=== PATIENT | female | born 1985 | race Caucasian/White ===

== ENCOUNTER 2019-06-12 05:35 | Inpatient (IN) | payer MEDICAID, OTHER ==
[~2019-06-12] VITALS: Ht 162.6 cm; Wt 52.2 kg
[~2019-06-12 05:35] MED LIST: ACET-2619 PO; ALUM360S96 PO; BEN10 PO; CARB200T1 PO; IMO2 PO; MAGN400S60 PO; METH750T5 PO; MULT-298 PO; PANT40EC PO; PROM25TA85 IM; QUET100T PO; QUET300T1 PO; SUCR1TAB56 PO
[2019-06-12 05:38] VITALS: BP 160/90
--- NOTE | 2019-06-12 05:39 | NUR ---
PT TAKEN TO BED 7
--- NOTE | 2019-06-12 05:55 | NUR ---
34 Y/O FEMALE BIB SIGNIFICANT OTHER WITH REFFERAL FROM DR. JEFFREY LANDRY MD FOR G-TUBE MALFUNCTION. PER PT G-TUBE FELL OUT X 2 DAYS AGO AND STOMA IS RED, WITH EDEMA PRESENT. WHITE DRAINAGE IS NOTED COMING OUT OF STOMA. PT STATES SHE HAS 7/10 PAIN IN THE AREA, PALPATION PROVOKES PAIN. PT UNABLE TO EAT WELL. "I'VE BEEN EATING MOSTLY FLUIDS AND EVEN THAT BOTHERS ME." PT SITTING UP IN BED RESTING WITH SIGNIFICANT OTHER AT BEDSIDE. VSS. WILL CONTINUE TO MONITOR. MEDICAL HISTORY: GASTRIC BYPASS SURGERY 2010. REMOVAL OF GALBLADDER AND L OVARY. ALLERGIES: SEE PT CHART.
[2019-06-12] MEDS ORDERED: NACL 0.9% 1,000 ML IV ONE (06:00)
--- NOTE | 2019-06-12 06:05 | NUR ---
DR HERRERA AT BEDSIDE.
[2019-06-12 06:35] LABS: BASOPHILS % (AUTO) 0.5 % (0.0-2.0); EOSINOPHILS # (AUTO) 0.1 K/uL (0-0.4); EOSINOPHILS % (AUTO) 1.4 % (0.0-4.0); HEMATOCRIT 29.2 % (36-48); HEMOGLOBIN 8.7 g/dL (12.0-16.0); LYMPHOCYTES % (AUTO) 21.7 % (20.5-51.1); MEAN CORPUSCULAR HEMOGLOBIN 18 pg (27-31); MEAN CORPUSCULAR HGB CONC 30 g/dL (33-37); MEAN CORPUSCULAR VOLUME 62.1 fL (80-94); MONOCYTES # (AUTO) 0.3 K/uL (0.8-1.0); MONOCYTES % (AUTO) 7.4 % (1.7-9.3); NEUTROPHILS # (AUTO) 3.1 K/uL (1.8-7.7); PLATELET COUNT (AUTO) 260 K/uL (140-450); RED BLOOD CELL COUNT(AUTO) 4.71 MIL/uL (4.20-5.40); WHITE BLOOD COUNT (AUTO) 4.6 K/uL (4.8-10.8)
[2019-06-12 06:38] LABS: ANION GAP 8.2 (8-16); CARBON DIOXIDE 30.4 mmol/L (21-32); CREATININE 0.8 mg/dL (0.6-1.3); POTASSIUM 3.6 mmol/L (3.5-5.1)
[2019-06-12] MEDS ORDERED: LACTATED RINGERS 1,000 ML IV SCH (06:39)
[2019-06-12 06:40] LABS: PROTHROMBIN TIME 9.9 secs (10.8-13.4)
[2019-06-12] MEDS ORDERED: ONDANSETRON 4 MG/2 ML VIAL IVP PRN (06:40)
[2019-06-12] MEDS ORDERED: LORazepam 2 MG/ML VIAL IVP PRN (06:40)
[2019-06-12 06:44] LABS: ALBUMIN 3.2 g/dL (3.4-5.0); TOTAL BILIRUBIN 0.4 mg/dL (0.0-1.0)
[2019-06-12] MEDS ORDERED: CLON1TAB PO (07:17)
[2019-06-12] MEDS ORDERED: HYDR2TAB6 PO (07:17)
--- NOTE | 2019-06-12 07:34 | NUR ---
PT ARRIVED ON THE UNIT. PT APPEARS STABLE AND IN NO APPARENT DISTRESS. PERFORMED HEAD TO TOE ASSESSMENT. ORIENTED PT TO UNIT OBTAINED MRSA NARES. TOOK WOUND PHOTO JTUBE OUT. OBTAINED VITALS.
[2019-06-12] MEDS ORDERED: fentaNYL 0.05 MG/ML VIAL ONE (07:44)
[2019-06-12] MEDS ORDERED: MIDAZOLAM 2 MG/2 ML VIAL ONE (07:44)
--- NOTE | 2019-06-12 07:58 | NUR ---
PT TAKEN OFF THE UNIT BY OR RNS PT APPEARS STABLE AND IN NO APPARENT DISTRESS. CONSENT SIGNED AND IN THE CHART.
--- NOTE | 2019-06-12 08:36 | NUR ---
DC PLANNING 34 YRS OLD FEMALE PATIENT WAS ADMITTED FROM HOME WITH A DX OF J-TUBE MALFUNCTION. PT HAS A HX OF GASTRIC BY PASS AND SEVERAL ABDOMINAL SURGERIES. DC PLAN TO REPLACE J-TUBE BY DR LANDRY AND DC HOME WHEN STABLE. CM TO FOLLOW
[2019-06-12] MEDS: diphenhydrAMINE 50 MG/ML VIAL ONE ×2 (08:42→09:16)
[2019-06-12] MEDS ORDERED: ceFAZolin 1,000 MG VIAL ONE (08:42)
[2019-06-12] MEDS ORDERED: fentaNYL 0.05 MG/ML VIAL IVP ONE (08:55)
[2019-06-12] MEDS ORDERED: MIDAZOLAM 2 MG/2 ML VIAL IVP ONE (08:55)
--- NOTE | 2019-06-12 09:30 | NUR ---
PT ARRIVED BACK ON THE UNIT FROM OR PT AWAKE IN BED PT APPEARS STABLE AND IN NO APPARENT DISTRESS. ALL SAFETY MEASURES ARE IN PLACE WILL CONTINUE TO MONITOR.
[2019-06-12 09:51] VITALS: BP 140/90
--- NOTE | 2019-06-12 11:02 | NUR ---
THE FOLLOWING APPOINTMENT HAS BEEN SET UP FOR YOU FOLLOW-UP CARE: 06/22/2018 AT 10:10AM DR. SENAIT DUVALL [address] [facility]. [address] [id number] IF YOU ARE UNABLE TO KEEP THIS APPOINTMENT PLEASE CONTACT THE CLINIC DIRECTLY TO RESCHEDULE.
--- NOTE | 2019-06-12 11:38 | NUR ---
FREQUENT ROUNDING ON PT PT FAMILY AT BEDSIDE. ALL SAFETY MEASURES ARE IN PLACE WILL CONTINUE TO MONITOR. ALL SAFETY MEASURES ARE IN PLACE WILL CONTINUE TO MONITOR
[2019-06-12 12:05] VITALS: BP 138/81
--- NOTE | 2019-06-12 13:12 | NUR ---
FREQUENT ROUNDING ON PT PT APPEARS STABLE AND IN NO APPARENT DISTRESS. ALL SAFETY MEASURES ARE IN PLACE WILL CONTINUE TO MONITOR
--- NOTE | 2019-06-12 13:49 | NUR ---
PATIENT HAS BEEN SCREENED AND CATEGORIZED HIGH NUTRITION RISK. PATIENT WILL BE SEEN WITHIN 1-2 DAYS OF ADMISSION. 06/12/19-06/13/[address]
[2019-06-12] MEDS ORDERED: clonazePAM 0.5 MG TAB PO SCH (14:55)
--- NOTE | 2019-06-12 15:30 | NUR ---
FREQUENT ROUNDING ON PT PT APPEARS STABLE AND IN NO APPARENT DISTRESS. ALL SAFETY MEASURES ARE IN PLACE
--- NOTE | 2019-06-12 16:15 | NUR ---
REVIEWED DISCHARGE INSTRUCTIONS WITH PATIENT. INFORMED PT TO FOLLOW UP WITH HER PRIMARY CARE PROVIDER WITHIN THE NEXT 2 WEEKS. PROVIDED EDUCATION OF DIET AND EXERCISE.ANSWERED ALL PATIENTS QUESTIONS. REMOVED ID BAND. REMOVED IV IV TIP INTACT. ALL SAFETY MEASURES ARE IN PLACE PT AMBULATED OFF THE UNIT WITH ALL PERSONAL BELONGINGS.
== END 2019-06-12 16:15 | disposition home or self-care (01) | DRG 252 ==
LOC: MED 05:35 → MTU 06:44
PROVIDERS: ADMIT Internal Medicine Pulmonary Disease; ATTEND Internal Medicine Pulmonary Disease
PROC: 0DW Gastrointestinal System, Revision (ICD-10-PCS; principal; 2019-06-12 08:00)
DX: K94.23 Gastrostomy malfunction (principal); E43 Unspecified severe protein-calorie malnutrition; Y83.8 Other surgical procedures as the cause of abnormal reaction of the patient, or of later complication, without mention of misadventure at the time of the procedure; Y82.8 Other medical devices associated with adverse incidents; F11.20 Opioid dependence, uncomplicated; F17.200 Nicotine dependence, unspecified, uncomplicated; G89.4 Chronic pain syndrome; K21.9 Gastro-esophageal reflux disease without esophagitis; Z98.84 Bariatric surgery status; Z68.1 Body mass index [BMI] 19.9 or less, adult; Z88.6 Allergy status to analgesic agent; Z88.1 Allergy status to other antibiotic agents; Z88.5 Allergy status to narcotic agent; Z88.8 Allergy status to other drugs, medicaments and biological substances
CPT/HCPCS: 36415; 80053; 85025; 85610; 85730; 87081; 99285; J0690; J1200; J2250; J3010; J7030; J7060

== ENCOUNTER 2020-08-09 11:00 | Observation (INO) | payer OTHER, SELFPAY ==
[~2020-08-09] VITALS: Ht 157.5 cm; Wt 54.0 kg
[~2020-08-09 11:00] MED LIST changes: -ALUM360S96 PO; -BEN10 PO; -CARB200T1 PO; +CLON1TAB PO; +HYDR2TAB6 PO; -IMO2 PO; -MAGN400S60 PO; -METH750T5 PO; -PANT40EC PO; -PROM25TA85 IM; -QUET100T PO; -QUET300T1 PO; -SUCR1TAB56 PO
--- NOTE | 2020-08-09 11:10 | NUR ---
PT TAKEN TO ER BED 12.
[2020-08-09 11:12] VITALS: BP 112/64
--- NOTE | 2020-08-09 11:14 | NUR ---
RN AT BEDSIDE FOR EVALUATION, TEMP 101.5 ORAL, PRN ACETAMINOPHEN 1MG PO ORDERED AT THIS TIME PER MD ORDER.
[2020-08-09] MEDS ORDERED: ACETAMINOPHEN EXTRA STRENGTH 500 MG TAB PO ONE (11:15)
--- NOTE | 2020-08-09 11:15 | NUR ---
35 y/o female bib self for J-tube dislodgement x 3 days. pt called GI doctor x3 days ago with no response and today he told her to come to ER. pt states pain is 6/10 and describes it as achy. pt states it is continuous as she has chronic abd pain. pt denies taking anything for the pain. on assessment abd is soft, flat, and nontender with active bowel sounds in all 4 quardrants. J tube opening is red with no discharge. pt denies n/v/SOB/chills/cough. pt is A&O x4 with even and unlabored respirations. pt is laying in bed, bed in lowest position, brakes locked, x1 siderail up. pmhx: Gastric bypass in 2009, 35 abdominal surgeries, L ovary removal, appendectomy, cholecystectomy. allx: NSAIDs, IV dye, Compazine, morphine, vancomycin, ASA, famotidine
--- NOTE | 2020-08-09 11:57 | NUR ---
DR DAVIS AT BEDSIDE FOR EVALUATION
[2020-08-09] MEDS ORDERED: NACL 0.9% 2,000 ML IV ONE (12:10)
--- NOTE | 2020-08-09 12:23 | NUR ---
PT AMBULATED TO RESTROOM FOR URINE SAMPLE WITH STEADY GAIT
--- NOTE | 2020-08-09 12:27 | NUR ---
PT UNABLE TO PROVIDE URINE SAMPLE AT THIS TIME. PROVIDED CUP OF WATER.
--- NOTE | 2020-08-09 12:34 | NUR ---
RAD AT BEDSIDE
--- NOTE | 2020-08-09 13:10 | NUR ---
URINE SAMPLE COLLECTED AND WALKED TO LAB
[2020-08-09 13:15] LABS: BILIRUBIN,URINE NEGATIVE (NEGATIVE); BLOOD, URINE NEGATIVE (NEGATIVE); LEUKOCYTE ESTERASE ,URINE NEGATIVE (NEGATIVE); NITRITE, URINE NEGATIVE (NEGATIVE); UGLUCOSE TRACE (NEGATIVE)
[2020-08-09 13:17] LABS: PROTHROMBIN TIME 10.1 secs (10.8-13.4)
[2020-08-09 13:19] LABS: APPEARANCE,URINE SLIGHTLY HAZY (CLEAR); COLOR,URINE ORANGE (YELLOW)
[2020-08-09 13:20] LABS: RBC,URINE 0-5 /HPF (0-5); WBC,URINE 0-5 /HPF (0-5)
[2020-08-09 13:25] LABS: ALBUMIN 3.1 g/dL (3.4-5.0); ANION GAP 10.2 (8-16); CARBON DIOXIDE 31.8 mmol/L (21-32); CREATININE 0.8 mg/dL (0.6-1.3); TOTAL BILIRUBIN 0.5 mg/dL (0.0-1.0)
[2020-08-09 13:28] LABS: BASOPHILS # (AUTO) 0.1 K/uL (0.00-0.22); BASOPHILS % (AUTO) 0.5 % (0.0-2.0); EOSINOPHILS # (AUTO) 0.1 K/uL (0-0.4); EOSINOPHILS % (AUTO) 0.5 % (0.0-4.0); HEMATOCRIT 25.5 % (36-48); HEMOGLOBIN 7.4 g/dL (12.0-16.0); LYMPHOCYTES # (AUTO) 1.6 K/uL (2.5-16.5); LYMPHOCYTES % (AUTO) 13.6 % (20.5-51.1); MEAN CORPUSCULAR HEMOGLOBIN 16 pg (27-31); MEAN CORPUSCULAR HGB CONC 29 g/dL (33-37); MEAN CORPUSCULAR VOLUME 56.1 fL (80-94); MONOCYTES # (AUTO) 0.9 K/uL (0.8-1.0); MONOCYTES % (AUTO) 8.2 % (1.7-9.3); NEUTROPHILS # (AUTO) 8.9 K/uL (1.8-7.7); NEUTROPHILS % (AUTO) 77.2 % (42.2-75.2); PLATELET COUNT (AUTO) 388 K/uL (140-450); RED BLOOD CELL COUNT(AUTO) 4.55 MIL/uL (4.20-5.40); RED CELL DISTRIBUTION WIDTH 18.2 % (11.6-13.7); WHITE BLOOD COUNT (AUTO) 11.6 K/uL (4.8-10.8)
--- NOTE | 2020-08-09 14:05 | NUR ---
PT RESTING IN BED WITH EVEN AND UNLABORED RESPIRATIONS OBSERVED. VSS. WILL CONTINUE TO MONITOR
[2020-08-09] MEDS ORDERED: ACETAMINOPHEN 325 MG TAB PO PRN (14:20)
[2020-08-09] MEDS ORDERED: clonazePAM 0.5 MG TAB PO PRN (14:25)
[2020-08-09] MEDS: DEXT 5% / NACL 0.45% 1,000 ML IV SCH (14:43)
--- NOTE | 2020-08-09 14:51 | NUR ---
REPORT GIVEN TO LAURA FRANKLIN FOR ADMIT TO [facility] 125A. ETA 15 MINS
[2020-08-09 15:05] VITALS: BP 127/86
--- NOTE | 2020-08-09 15:05 | NUR ---
RECEIVED PATIENT FROM THE ER NURSE. PATIENT IS AO X4. RESPIRATIONS EVEN AND UNLABORED. NO RESPIRATORY DISTRESS NOTED. ON ROOM AIR. SKIN IS WARM AND DRY. IV SITE RAC 16G INFUSING D5 1/2 NS @75 CC/HR. HAS A J-TUBE STOMA ON RIGHT UPPER ABD. ABDOMEN IS FLAT, SOFT, AND NON-DISTENDED. COMPLAINS OF ABD PAIN 8/10. PLAN OF CARE DISCUSSED. SAFETY PRECAUTIONS IN PLACE. CALL LIGHT WITHIN REACH. WILL CONTINUE TO MONITOR.
--- NOTE | 2020-08-09 15:10 | NUR ---
Patient will be admitted to care of Dr. Blair Duggan. Admited to [facility]. Will go to room 125A. Belongings list completed. Report to Dionte FRANKLIN.
[2020-08-09] MEDS: HYDROmorphone 1 MG/ML AMP IVP PRN ×2 (15:22→21:47)
--- NOTE | 2020-08-09 15:22 | NUR ---
PATIENT COMPLAINED OF ABD PAIN 8. ADMINISTERED DILAUDID IVP PER MD ORDERED.
--- NOTE | 2020-08-09 18:00 | NUR ---
CHECKED ON PATIENT. PATIENT IS STABLE. NO DISTRESS NOTED. WILL CONTINUE TO MONITOR.
[2020-08-09 20:00] VITALS: BP 162/99
--- NOTE | 2020-08-09 21:54 | NUR ---
IV noted infiltrated with bulge to inner upper arm near site. Sore to touch. Infusion stopped.
--- NOTE | 2020-08-09 23:30 | NUR ---
22 GA LFA IV fluids resumed, D51/2 NS@75/hr.
[2020-08-10] VITALS: BP 135/72
[2020-08-10] MEDS: DEXT 5% / NACL 0.45% 1,000 ML IV SCH ×3 (03:40→17:22)
[2020-08-10 04:00] VITALS: BP 146/95
--- NOTE | 2020-08-10 07:30 | NUR ---
RECEIVED BEDSIDE REPORT FROM PAYROLL SUPERVISOR NURSE. PATIENT IS AO X4. ABLE TO MAKE NEEDS KNOWN. RESPIRATIONS EVEN AND UNLABORED. NO RESPIRATORY DISTRESS NOTED. ON ROOM AIR. SKIN IS WARM AND DRY. IV SITE ON LEFT WRIST 20G INFUSING D5 1/2 NS @75 CC/HR. HAS A J-TUBE STOMA ON RIGHT UPPER ABD. ABDOMEN IS FLAT, SOFT, AND NON-DISTENDED. NO COMPLAIN OF PAIN IN THE ABD. PLAN OF CARE DISCUSSED. SAFETY PRECAUTIONS IN PLACE. CALL LIGHT WITHIN REACH. WILL CONTINUE TO MONITOR.
--- NOTE | 2020-08-10 07:30 | NUR ---
Hand-off report to RIGOBERTO Rapp for continuity of care.
[2020-08-10 08:02] LABS: CARBON DIOXIDE 28.6 mmol/L (21-32); CREATININE 0.6 mg/dL (0.6-1.3); POTASSIUM 3.6 mmol/L (3.5-5.1)
[2020-08-10 08:09] LABS: BASOPHILS % (AUTO) 0.5 % (0.0-2.0); EOSINOPHILS # (AUTO) 0.1 K/uL (0-0.4); EOSINOPHILS % (AUTO) 1.2 % (0.0-4.0); HEMATOCRIT 23.1 % (36-48); LYMPHOCYTES # (AUTO) 1.4 K/uL (2.5-16.5); LYMPHOCYTES % (AUTO) 22.7 % (20.5-51.1); MEAN CORPUSCULAR HEMOGLOBIN 17 pg (27-31); MEAN CORPUSCULAR HGB CONC 29 g/dL (33-37); MONOCYTES # (AUTO) 0.4 K/uL (0.8-1.0); NEUTROPHILS # (AUTO) 4.2 K/uL (1.8-7.7); NEUTROPHILS % (AUTO) 68.6 % (42.2-75.2); PLATELET COUNT (AUTO) 328 K/uL (140-450); RED BLOOD CELL COUNT(AUTO) 4.05 MIL/uL (4.20-5.40); RED CELL DISTRIBUTION WIDTH 17.9 % (11.6-13.7); WHITE BLOOD COUNT (AUTO) 6.1 K/uL (4.8-10.8)
[2020-08-10] MEDS: HYDROmorphone 1 MG/ML AMP IVP PRN (09:24)
--- NOTE | 2020-08-10 09:24 | NUR ---
NO SCHEDULED MEDS TO ADMINISTER. PT COMPLAINED OF ABD PAIN 01/27. ADMINISTERED DILAUDID IVP PER MD ORDERED.
[2020-08-10 09:53] LABS: HEMOGLOBIN 6.7 g/dL (12.0-16.0)
[2020-08-10 10:33] LABS: HEMATOCRIT 22.9 % (36-48)
--- NOTE | 2020-08-10 10:41 | NUR ---
PATIENT HAS BEEN SCREENED AND CATEGORIZED HIGH NUTRITION RISK. PATIENT WILL BE SEEN WITHIN 1-2 DAYS OF ADMISSION. 08/10/20 - 08/11/20 THU CHAPMAN MBA, RD
[2020-08-10 11:19] LABS: HEMOGLOBIN 6.6 g/dL (12.0-16.0)
--- NOTE | 2020-08-10 11:30 | NUR ---
CRITICAL LABS REPORTED TO MD. NEW ORDERS PLACED. AWAITING FOR PATIENT CONSENT AND PRBC FROM THE BLOOD BANK.
--- NOTE | 2020-08-10 12:13 | NUR ---
SPOKE TO DR. CUELLO. NOTIFIED MD REGARDING BLOOD CONSENT. MD WILL SEE PATIENT TOMORROW MORNING FOR GI CONSULTATION.
--- NOTE | 2020-08-10 14:27 | NUR ---
OBTAINED PATIENT CONSENT FOR BLOOD TRANSFUSION. PATIENT IS AWARE OF THE BLOOD TRANSFUSION PROCEDURE AND VERBALIZED UNDERSTANDING OF THE RISKS AND BENEFITS OF RECEIVING IT. AWAITING FOR PRBC AVAILABILITY FROM THE BLOOD BANK.
--- NOTE | 2020-08-10 15:35 | NUR ---
PICKED UP PRBC BAG FROM BLOOD BANK. VERIFIED WITH BLOOD BAG WITH TESTER REGULATOR.
[2020-08-10 16:00] VITALS: BP 133/90
--- NOTE | 2020-08-10 16:10 | NUR ---
PATIENT'S PRE VITAL SIGNS CHECKED. BLOOD TRANSFUSION STARTED. PATIENT STABLE PRIOR TO TRANFUSION.
--- NOTE | 2020-08-10 18:42 | NUR ---
PATIENT IS STABLE AND STILL RUNNING BLOOD TRANSFUSION WITH NO SIGNS OF DISTRESS. WILL CONTINUE TO MONITOR.
--- NOTE | 2020-08-10 19:30 | NUR ---
ENDORSED TO LEAD SOFTWARE TESTER NURSE FOR CONTINUITY OF CARE. PT IS STABLE.
[2020-08-10 20:00] VITALS: BP 122/88
[2020-08-10 21:45] VITALS: BP 133/95
[2020-08-11 01:00] VITALS: BP 160/95
[2020-08-11] MEDS: HYDROmorphone 1 MG/ML AMP IVP PRN ×4 (01:08→17:14)
[2020-08-11 01:22] VITALS: BP 144/88
[2020-08-11 04:48] VITALS: BP 155/92
[2020-08-11 05:11] LABS: ANION GAP 9.2 (8-16); CARBON DIOXIDE 29.4 mmol/L (21-32); CREATININE 0.7 mg/dL (0.6-1.3); POTASSIUM 3.6 mmol/L (3.5-5.1)
[2020-08-11] MEDS: DEXT 5% / NACL 0.45% 1,000 ML IV SCH ×2 (05:30→13:09)
--- NOTE | 2020-08-11 06:58 | NUR ---
PT NPO FOR EGD AND PEG TUBE PLACEMENT THIS AM. 2 UNITS PRBC'S INFUSED 08/10/20. NO REACTIONS NOTED. PT MEDICATED X2 DURING SHIFT FOR ABD PAIN WITH 1MG IVP DILAUDID WITH GOOD RELIEF. PRE-OP CHECKLIST DONE. PT STABLE AT THIS TIME. NO ACUTE DISTRESS NOTED. WILL ENDORSE TO DAYSHIFT.
[2020-08-11] MEDS ORDERED: diphenhydrAMINE 50 MG/ML VIAL ONE (07:27)
[2020-08-11] MEDS ORDERED: MIDAZOLAM 5 MG/5 ML VIAL ONE (07:28)
[2020-08-11] MEDS ORDERED: fentaNYL citrate 0.05 MG/ML VIAL ONE (07:28)
[2020-08-11] MEDS ORDERED: ceFAZolin 1,000 MG VIAL ONE (07:43)
[2020-08-11] MEDS ORDERED: MIDAZOLAM 2 MG/2 ML VIAL IVP ONE (08:25)
[2020-08-11] MEDS ORDERED: diphenhydrAMINE 50 MG/ML VIAL IVP ONE (08:25)
[2020-08-11] MEDS ORDERED: fentaNYL citrate 0.05 MG/ML VIAL IVP ONE (08:25)
[2020-08-11] MEDS ORDERED: AMMONIA AROMATIC 1 INHL INH ONE ×2 (08:51→09:35)
[2020-08-11 09:00] VITALS: BP 148/99
--- NOTE | 2020-08-11 09:05 | NUR ---
PATIENT RETURNED FROM EGD, VITAL SIGNS STABLE. DROWSY BUT AROUSABLE. AOX4, RESPIRATIONS EVEN AND UNLABORED ON ROOM AIR. DENIES PAIN AT THIS TIME. J TUBE SITE WITH SCANT AMOUNT OF BLOOD. PATIENT AMBULATED TO BATHROOM, VOIDED. TOLERATING ICE CHIPS WELL. WILL CONTINUE TO MONITOR.
[2020-08-11] MEDS ORDERED: AMMONIA AROMATIC 1 INHL INH SCH (09:42)
[2020-08-11 11:44] LABS: BASOPHILS # (AUTO) 0.1 K/uL (0.00-0.22); BASOPHILS % (AUTO) 1.4 % (0.0-2.0); EOSINOPHILS # (AUTO) 0.1 K/uL (0-0.4); EOSINOPHILS % (AUTO) 3.1 % (0.0-4.0); HEMATOCRIT 32.3 % (36-48); HEMOGLOBIN 9.6 g/dL (12.0-16.0); LYMPHOCYTES # (AUTO) 1.1 K/uL (2.5-16.5); LYMPHOCYTES % (AUTO) 30.4 % (20.5-51.1); MEAN CORPUSCULAR HEMOGLOBIN 19 pg (27-31); MEAN CORPUSCULAR HGB CONC 30 g/dL (33-37); MEAN CORPUSCULAR VOLUME 65.1 fL (80-94); MONOCYTES # (AUTO) 0.3 K/uL (0.8-1.0); NEUTROPHILS # (AUTO) 2.1 K/uL (1.8-7.7); NEUTROPHILS % (AUTO) 57.1 % (42.2-75.2); PLATELET COUNT (AUTO) 307 K/uL (140-450); RED BLOOD CELL COUNT(AUTO) 4.95 MIL/uL (4.20-5.40); RED CELL DISTRIBUTION WIDTH 27.5 % (11.6-13.7); WHITE BLOOD COUNT (AUTO) 3.7 K/uL (4.8-10.8)
--- NOTE | 2020-08-11 12:29 | NUR ---
DISCHARGE PLANNING: THIS IS A 35 Y/O FEMALE PATIENT FROM HOME, WHO CAME IN DUE TO DISPLACED J TUBE. PAST MEDICAL HISTORY INCLUDE OBESITY, CHOLECYSTECTOMY, C SECTION AND GASTRIC BYPASS. INITIAL DIAGNOSIS OF DISPLACED J TUBE AND FEVER. CURRENT LABS INCLUDE WBC 3.7, H/H 9.6/32.3, NA/K 138/3.6, BUN/CREA 3/0.7. RAPID COVID TEST NEGATIVE. GI CONSULT IN PLACE. DC PLAN PENDING ON PATIENT'S RESPONSE TO TREATMENT.
--- NOTE | 2020-08-11 13:37 | NUR ---
SOCIAL WORK NOTE: Patient's Orientation Person Situation Place Time Information Provided By PATIENT Comments SW WAS UNABLE TO MEET PATIENT AT BEDSIDE. SW COMPLETED ASSESSMENT WITH TELEPHONICALLY. PATIENT PROVIDED UPDATED CONTACT INFORMATION FOR FATHER. Pasta Press Operator, Realtionship and Phone Number ELBA MAYA [phone] Healthcare Power of Sausage Mixer No Does Patient Have a POLST No Identifying Problems No Social Work Triggers Is A Social Work Consult Needed No Mandate Report Filed No Explanation Of Identifying Problems PATIENT IS A 35-YEAR-OLD FEMALE ADMITTED FOR DISPLACED J-TUBE. PATIENT HASP MHX OF OBESITY. Admitted From Home Pre-Admission Level Of Functioning Status Independent/Ambulatory Prior Resources/Services Used In Last 12 Months No Prior Resources Used Prior DME No Prior DME Used Dialysis Comments N/A Living Situation Lives With Family House Patient Had Caregiver No Home Support No Caregiver Issues Financial Issues No Known Financial Issue Referral To The Financial Counselor Needed No Factors/Needs No D/C Needs Identified Pt/Rep Participated In Discharge Plan Yes Patient/Family Agress With Discharge Plan Yes Discharge Plan Comments TENTATIVE DISCHARGE PLAN IS FOR PATIENT TO RETURN HOME. DC Plan Status Initiated
[2020-08-11 16:00] VITALS: BP 153/112
--- NOTE | 2020-08-11 16:12 | NUR ---
08/11/20 RD INITIAL ASSESSMENT COMPLETED PLEASE REFER TO NUTRITION ASSESSMENT UNDER CARE ACTIVITY FOR ESTIMATED NUTRITIONAL NEEDS. 1. CONTINUE REGULAR DIET TOLERATED 2. IF/WHEN MEDICALLY STABLE CONTINUE JEVITY 1.2 @ 65 ML/HR. START AT 10 ML/HR AND INCREASE BY 10 ML/HR Q4H 3. RD TO FOLLOW-UP 2-3 DAYS, HIGH RISK LUIS FELIPE MAGANA, RD
--- NOTE | 2020-08-11 17:20 | NUR ---
PATIENT REPORTS SEVERE PAIN. PRN MEDICATION GIVEN WITH RELIEF. J TUBE SITE NOTED WITH MODERATE AMOUNT OF BLOOD. COVERED WITH PERFORATED GAUZE. OLD J TUBE SITE COVERED WITH GAUZE. OFFERED ABDOMINAL BINDER TO PATIENT.
[2020-08-11] MEDS ORDERED: FERR75LI22 PO (17:21)
[2020-08-11 17:31] VITALS: BP 153/112
--- NOTE | 2020-08-11 18:05 | NUR ---
EXPLAINED DISCHARGE INSTRUCTIONS TO PATIENT INCLUDING J TUBE SITE CARE AND NEW PRESCRIPTIONS/ FOLLOW UP. PATIENT VERBALIZED UNDERSTANDING; ABDOMINAL BINDER APPLIED, IV REMOVED WITH CATHETER TIP INTACT. WILL BE PICKED UP BY FAMILY MEMBER.
== END 2020-08-11 18:15 | disposition home or self-care (01) ==
LOC: MED 11:00 → MMU 14:23
PROVIDERS: ADMIT Internal Medicine; ATTEND Internal Medicine
DX: Z43.1 Encounter for attention to gastrostomy (principal); Z20.822 Contact with and (suspected) exposure to COVID-19; R50.9 Fever, unspecified; D64.9 Anemia, unspecified; E61.1 Iron deficiency; Z90.49 Acquired absence of other specified parts of digestive tract; Z98.84 Bariatric surgery status; Z79.899 Other long term (current) drug therapy; Z88.1 Allergy status to other antibiotic agents; Z88.5 Allergy status to narcotic agent; Z88.8 Allergy status to other drugs, medicaments and biological substances; Z88.6 Allergy status to analgesic agent; Z91.041 Radiographic dye allergy status
CPT/HCPCS: 36415; 36430; 43246; 71045; 80048; 80053; 81001; 83605; 83690; 84703; 85018; 85025; 85610; 86886; 86900; 86901; 86920; 87040; 87081; 87086; 87426; 96361; 96374; 96376; 99284; G0378; J0690; J1170; J1200; J2250; J3010; J7030; J7060; P9016

== ENCOUNTER 2020-08-11 20:52 | Emergency (ER) | payer OTHER, SELFPAY ==
[~2020-08-11] VITALS: Ht 157.5 cm; Wt 49.9 kg
[~2020-08-11 20:52] MED LIST changes: +FERR75LI22 PO
[2020-08-11 20:56] VITALS: BP 152/102
--- NOTE | 2020-08-11 20:56 | NUR ---
TO BED AMBULATORY
--- NOTE | 2020-08-11 21:19 | NUR ---
BLAIR SAINZ AT BEDSIDE
--- NOTE | 2020-08-11 21:20 | NUR ---
BLAIR SAINZ PERFORMED COMPLETE ASSESSMENT, NO ACUTE DISTRESS NOTED AT THIS TIME.
[2020-08-11] MEDS ORDERED: LIDOCAINE/EPI 1% 1:100000 20 ML VIAL INJ ONE ×2 (21:35→21:36)
--- NOTE | 2020-08-11 21:37 | NUR ---
LAB AT BEDSIDE
[2020-08-11 21:52] LABS: BASOPHILS % (AUTO) 0.7 % (0.0-2.0); EOSINOPHILS # (AUTO) 0.2 K/uL (0-0.4); EOSINOPHILS % (AUTO) 2.8 % (0.0-4.0); HEMATOCRIT 36.4 % (36-48); HEMOGLOBIN 11.1 g/dL (12.0-16.0); LYMPHOCYTES % (AUTO) 17.8 % (20.5-51.1); MEAN CORPUSCULAR HEMOGLOBIN 19 pg (27-31); MEAN CORPUSCULAR HGB CONC 30 g/dL (33-37); MEAN CORPUSCULAR VOLUME 63.8 fL (80-94); MONOCYTES # (AUTO) 0.5 K/uL (0.8-1.0); MONOCYTES % (AUTO) 9.6 % (1.7-9.3); NEUTROPHILS # (AUTO) 3.9 K/uL (1.8-7.7); NEUTROPHILS % (AUTO) 69.1 % (42.2-75.2); PLATELET COUNT (AUTO) 352 K/uL (140-450); RED BLOOD CELL COUNT(AUTO) 5.71 MIL/uL (4.20-5.40); WHITE BLOOD COUNT (AUTO) 5.7 K/uL (4.8-10.8)
--- NOTE | 2020-08-11 21:58 | NUR ---
BLAIR SAINZ AT BEDSIDE PERFORMING PROCEDURE
[2020-08-11 22:04] LABS: PROTHROMBIN TIME 10.3 secs (10.8-13.4)
[2020-08-11] MEDS ORDERED: TRANEXAMIC ACID 1,000 MG/10 ML VIAL MC ONE (22:20)
--- NOTE | 2020-08-11 22:30 | NUR ---
BLAIR SAINZ AT BEDSIDE PERFORMING RE-EVALUATION
--- NOTE | 2020-08-11 23:00 | NUR ---
BLAIR SAINZ AT BEDSIDE FOR RE-EVALUATION
--- NOTE | 2020-08-11 23:17 | NUR ---
SPOKE WITH PTS FOR A STATUS UPDATE, HE WAS NOTIFIED THAT SHE WILL BE DISCHARGED SOON, PTS STATED THAT HE IS ON HIS WAY TO PICK HER UP BECAUSE HE IS HER ONLY RIDE
--- NOTE | 2020-08-11 23:29 | NUR ---
BLAIR SAINZ AT BEDSIDE
--- NOTE | 2020-08-11 23:35 | NUR ---
ABD BINDER PLACED ON PT
[2020-08-11 23:42] VITALS: BP 152/102
--- NOTE | 2020-08-11 23:42 | NUR ---
Patient discharged with v/s stable. Written and verbal after care instructions given and explained. Patient verbalized understanding. Ambulatory with steady gait. All questions addressed prior to discharge. Advised to follow up with PMD.
== END 2020-08-11 23:42 | disposition home or self-care (01) ==
LOC: MED 20:52
DX: K94.21 Gastrostomy hemorrhage (principal); K21.9 Gastro-esophageal reflux disease without esophagitis; Z86.73 Personal history of transient ischemic attack (TIA), and cerebral infarction without residual deficits; Z88.6 Allergy status to analgesic agent; Z88.5 Allergy status to narcotic agent; Z88.1 Allergy status to other antibiotic agents; Z79.899 Other long term (current) drug therapy
CPT/HCPCS: 36415; 85025; 85610; 85730; 99283; J2001; J3490

== ENCOUNTER 2020-08-12 00:05 | Inpatient (IN) | payer OTHER, SELFPAY ==
[~2020-08-12] VITALS: Ht 162.6 cm; Wt 49.9 kg
[2020-08-12 00:13] VITALS: BP 151/98
--- NOTE | 2020-08-12 00:13 | NUR ---
TO BED AMBULATORY
--- NOTE | 2020-08-12 00:31 | NUR ---
PT CHECKED BACK IN AFTER BEING D/C DUE TO GTUBE BLEEDING. ERMD SAW PT AND NEW SURGICEL WAS APPLIED. PT WILL BE ADMITTED TO THE HOSPITAL AT THIS TIME
[2020-08-12] MEDS ORDERED: MORPHINE SULFATE 2 MG/ML SYR IVP PRN (00:40)
[2020-08-12] MEDS ORDERED: ONDANSETRON 4 MG/2 ML VIAL IVP PRN (00:40)
[2020-08-12] MEDS ORDERED: LORazepam 2 MG/ML VIAL IVP PRN (00:40)
[2020-08-12] MEDS ORDERED: HYDROcodone/APAP 5/325 MG 1 TAB TAB PO PRN (00:40)
[2020-08-12] MEDS ORDERED: ACETAMINOPHEN 325 MG TAB PO PRN ×2 (00:40→11:15)
[2020-08-12] MEDS ORDERED: NACL 0.9% 1,000 ML IV SCH (00:40)
[2020-08-12] MEDS ORDERED: NACL 0.9% 1,000 ML IV ONE ×3 (00:45→03:40)
--- NOTE | 2020-08-12 00:50 | NUR ---
LAB AT BEDSIDE
--- NOTE | 2020-08-12 00:50 | NUR ---
pt wound covered with surgicel, sterile gauze, closed with tegaderm.
--- NOTE | 2020-08-12 00:52 | NUR ---
IRAM NG COLLECTED AND HANDED OVER TO ACOUSTICAL INSTALLERLARRY
--- NOTE | 2020-08-12 01:00 | NUR ---
PT CONNECTED TO THE RIB CUTTER. SIDE RAILSX1, BED IS LOCKED AND IN LOWEST POSITION.
[2020-08-12 01:13] LABS: MEAN CORPUSCULAR HEMOGLOBIN 19 pg (27-31); WHITE BLOOD COUNT (AUTO) 5.7 K/uL (4.8-10.8)
[2020-08-12] MEDS ORDERED: TRANEXAMIC ACID 1,000 MG/10 ML VIAL MC ONE (01:15)
--- NOTE | 2020-08-12 01:15 | NUR ---
UNABLE TO START IV AT THIS TIME. OTHER NURSE IS ATTEMPTING TO START IV
[2020-08-12 01:21] LABS: BASOPHILS % (AUTO) 0.8 % (0.0-2.0); EOSINOPHILS # (AUTO) 0.2 K/uL (0-0.4); EOSINOPHILS % (AUTO) 3.3 % (0.0-4.0); HEMATOCRIT 34.2 % (36-48); HEMOGLOBIN 10.5 g/dL (12.0-16.0); LYMPHOCYTES # (AUTO) 1.3 K/uL (2.5-16.5); LYMPHOCYTES % (AUTO) 23.6 % (20.5-51.1); MEAN CORPUSCULAR HGB CONC 31 g/dL (33-37); MEAN CORPUSCULAR VOLUME 63.3 fL (80-94); MONOCYTES # (AUTO) 0.6 K/uL (0.8-1.0); MONOCYTES % (AUTO) 9.7 % (1.7-9.3); NEUTROPHILS # (AUTO) 3.5 K/uL (1.8-7.7); NEUTROPHILS % (AUTO) 62.6 % (42.2-75.2); PLATELET COUNT (AUTO) 354 K/uL (140-450); RED CELL DISTRIBUTION WIDTH 28.2 % (11.6-13.7)
[2020-08-12] MEDS ORDERED: LIDOCAINE/EPI 1% 1:100000 20 ML VIAL INJ ONE ×4 (01:25→13:55)
--- NOTE | 2020-08-12 02:55 | NUR ---
PT ASSISTED ONTO BEDPAN
--- NOTE | 2020-08-12 03:04 | NUR ---
PT VOIDED 740 ML YELLOW URINE
--- NOTE | 2020-08-12 03:09 | NUR ---
SPOKE WITH THE PTS TO GIVE HIM AN UPDATE ON THE PTS STATUS
--- NOTE | 2020-08-12 03:40 | NUR ---
BLAIR NOTIFIED OF PTS BP AND NO CALL BACK FROM ADMIT MD. BLAIR YOU GAVE VERBAL ORDERS FOR NS BOLUS
--- NOTE | 2020-08-12 03:43 | NUR ---
SPOKE WITH ADMIT MD BAIRD, HE AGREED WITH ANOTHER NS BOLUS, HE ALSO ORDERED TORADOL 30 MG IV Q6 HRS PRN
--- NOTE | 2020-08-12 03:50 | NUR ---
BLAIR CABANHA AT BEDSIDE ATTEMPTING TO START ANOTHER IV
--- NOTE | 2020-08-12 03:57 | NUR ---
UNABLE TO ADMIN TORADOL PRN DUE TO NSAID ALLERGY
--- NOTE | 2020-08-12 04:20 | NUR ---
ANOTHER RN IS AT BEDSIDE ATTEMPTING TO COLLECT BLOOD LABS AT THIS TIME
--- NOTE | 2020-08-12 04:34 | NUR ---
UNABLE TO COLLECT BLOOD LABS AT THIS TIME, SEVERAL NURSES HAVE TRIED. WILL CALL DREDGE PIPE INSTALLER
--- NOTE | 2020-08-12 04:35 | NUR ---
PT WENT TO CT VIA [facility]
--- NOTE | 2020-08-12 04:46 | NUR ---
PT RETURNED FROM [facility] VIA [facility]
--- NOTE | 2020-08-12 05:02 | NUR ---
lab at bedside
[2020-08-12] MEDS ORDERED: diphenhydrAMINE 50 MG/ML VIAL IVP ONE (05:05)
--- NOTE | 2020-08-12 05:15 | NUR ---
PT CONNECTED TO THE DISTRICT MANAGER MAJOR [employer]S SALES. SIDE RAILSX1, BED IS LOCKED AND IN LOWEST POSITION. ALL ORDERS CARRIED OUT.
--- NOTE | 2020-08-12 05:20 | NUR ---
CALLED MST NURSE MALICK TO GIVE REPORT FOR TRANSFER OF CARE, NO ANSWER AT THIS TIME
[2020-08-12 05:27] LABS: HEMATOCRIT 32.6 % (36-48); HEMOGLOBIN 10.1 g/dL (12.0-16.0)
--- NOTE | 2020-08-12 05:36 | NUR ---
CALLED MST NURSE MALICK TO GIVE REPORT, NO ANSWER
--- NOTE | 2020-08-12 06:10 | NUR ---
CALLED REPORT TO RIGOBERTO TERESA FOR TRANSFER OF CARE
--- NOTE | 2020-08-12 06:27 | NUR ---
Patient will be admitted to care of . Admited to [facility]. Will go to room 112A. Belongings list completed. Report to RIGOBERTO TERESA.
[2020-08-12 07:15] VITALS: BP 146/102
--- NOTE | 2020-08-12 08:00 | NUR ---
PATIENT DRESSING AT JTUBE SITE COMPLETELY SATURATED W/ BLOOD. REMOVED DRESSING AND REPLACED W/ CLEAN TUBE DRESSING. WILL MONITOR FOR BLEED.
[2020-08-12] MEDS: ENOXAPARIN 40 MG/0.4 ML SYR SUBQ SCH (08:43)
--- NOTE | 2020-08-12 08:43 | NUR ---
[facility] ANTICOAGULANT HELD.
--- NOTE | 2020-08-12 08:52 | NUR ---
MD NOTIFIED AND ACKNOWLEDGED OF PATIENT ADMIT W/ BLEED FROM JTUBE SIDE. MD WILL COME SEE PATIENT THIS MORNING.
--- NOTE | 2020-08-12 09:08 | NUR ---
PATIENT HAS BEEN SCREENED AND CATEGORIZED HIGH NUTRITION RISK. PATIENT WILL BE SEEN WITHIN 1-2 DAYS OF ADMISSION. 08/12/20-08/13/[address]
[2020-08-12] MEDS ORDERED: diphenhydrAMINE 50 MG/ML VIAL ONE (10:47)
[2020-08-12] MEDS ORDERED: MIDAZOLAM 5 MG/5 ML VIAL ONE (10:47)
[2020-08-12] MEDS ORDERED: fentaNYL citrate 0.05 MG/ML VIAL ONE (10:47)
[2020-08-12] MEDS: ceFAZolin 1,000 MG VIAL ONE ×2 (11:15→12:01)
[2020-08-12] MEDS ORDERED: clonazePAM 0.5 MG TAB PO SCH (11:15)
[2020-08-12] MEDS: DEXT 5% / NACL 0.45% 1,000 ML IV SCH (11:35)
[2020-08-12] MEDS ORDERED: TPN PER PHARMACY MC PRN (13:00)
--- NOTE | 2020-08-12 13:22 | NUR ---
DC PLANNING: THIS IS A 35 Y/O FEMALE PATIENT FROM HOME, WITH A DX OF GI BLEED. PAST MEDICAL HISTORY INCLUDE OBESITY, CHOLECYSTECTOMY, C SECTION AND GASTRIC BYPASS WITH J-TUBE. PT WAS DISCHARGED FROM [facility] ON 08/11/20, SEEN BY DR LANDRY PERFORMED EGD AND PLACED A JEJUNAL TUBE. CURRENT LABS INCLUDE WBC H/H 10.1/32.6, RAPID COVID TEST NEGATIVE. GI CONSULT IN PLACE. DC PLAN PENDING ON PATIENT'S RESPONSE TO TREATMENT.CM TO FOLLOW Addendum: 08/13/20 at 1119 by Gwen Jacobsen RN DC PLANNING: DR LANDRY PERFORMED UPPER ENDOSCOPY WITH FISTULA CLOSURE USING 2 CLIPS AND SUTURE OF BLEEDING JEJUNOSTOMY SITE. ON CLEAR LIQUID ORDERED TPN AND CONTINUE ROCEPHIN IV ABX. DC PLAN TO GO HOME WHEN STABLE CM TO FOLLOW
[2020-08-12] MEDS ORDERED: fentaNYL citrate 0.05 MG/ML VIAL IVP ONE (13:40)
[2020-08-12] MEDS ORDERED: MIDAZOLAM 2 MG/2 ML VIAL IVP ONE (13:40)
--- NOTE | 2020-08-12 14:53 | NUR ---
ADMINISTERED PRESCRIBED MEDS PER MD ORDER. PATIENT TOLERATED WELL. MEDICATION EDUCATION PROVIDED. PATIENT VERBALIZED UNDERSTANDING. ASSISTED PATIENT W/ TOILETING NEEDS. SAFETY MEASURES IN PLACE. WILL CONTINUE TO MONITOR.
[2020-08-12 16:00] VITALS: BP 133/91
--- NOTE | 2020-08-12 16:51 | NUR ---
HOURLY ROUNDING PERFORMED. PATIENT IN BED, DENIES PAIN. NO SIGNS OF DISTRESS OR DISCOMFORT NOTED. PATIENT IS ABLE TO MAKE NEEDS KNOWN. SAFETY MEASURES IN PLACE. WILL CONTINUE TO MONITOR.
--- NOTE | 2020-08-12 19:25 | NUR ---
ENDORSED PATIENT TO NIGHTSHIFT NURSE FOR CONTINUITY OF CARE.
--- NOTE | 2020-08-12 19:26 | NUR ---
RECD. RESTING IN BED, AWAKE, A/OX4. RESPIRATION EVEN AND UNLABORED. IV OF D5 0.45 NS INFUSING AT 80 ML/HR, LEFT HAND G22. IV SALINE LOCK AT THE LEFT FOREARM G20, PATENT AND INTACT. GT SITE WITH SMALL DRESSING, OLD GT SITE COVERED WITH BAND AID DRESSING, BOTH DRY AND INTACT. WITH BODY WEAKNESS, USES BEDPAN. MEDICATIONS AND CARE FOR THE NIGHT DISCUSSED. VERBALIZED UNDERSTANDING. DENIES PAIN 0/10.
[2020-08-12 20:00] VITALS: BP 149/105
[2020-08-12] MEDS ORDERED: HYDROmorphone 1 MG/ML AMP IVP PRN (21:30)
--- NOTE | 2020-08-12 21:30 | NUR ---
INFORMED DR. MUÑOZ PATIENT IS COMPLAINING OF SEVERE PAIN BUT IS ALLERGIC TO MORPHINE AND TAKES DILAUDID PO AT HOME, ORDERED DILAUDID FOR PATIENT.
--- NOTE | 2020-08-12 21:42 | NUR ---
Patient's Plan of Care was discussed and reviewed with THIN FILM TECHNICIAN: YAZAN SOLER
[2020-08-12] MEDS: HYDROmorphone 1 MG/ML AMP IVP PRN (21:46)
--- NOTE | 2020-08-12 22:20 | NUR ---
INQUIRED ON DR. LANDRY IF PATIENT IS STILL NPO. ORDERED CLEAR LIQUID BUT DON'T USE G-TUBE TO ALLOW HEALING.
--- NOTE | 2020-08-12 23:00 | NUR ---
RESTING IN BED, STATED FEELING BETTER. MEDICATED WITH DILAUDID BY RN.
[2020-08-13] MEDS: DEXT 5% / NACL 0.45% 1,000 ML IV SCH ×2 (00:05→12:35)
--- NOTE | 2020-08-13 02:00 | NUR ---
SLEEPING COMFORTABLY IN BED.
[2020-08-13 04:00] VITALS: BP 144/102
--- NOTE | 2020-08-13 04:10 | NUR ---
IV LINES INFILTRATED. WILL INSERT NEW IV LINE.
--- NOTE | 2020-08-13 04:55 | NUR ---
RIGOBERTO SAINI AND CHARGE NURSE HENNY TRIED TO PUT A NEW LINE, PATIENT IS HARD STICK. REQUESTED ER NURSE TO COME AND PUT NEW IV LINE.
--- NOTE | 2020-08-13 05:30 | NUR ---
ER NURSE WAS NOT ABLE TO PUT A NEW IV LINE, WILL INFORM MD.
[2020-08-13 07:06] LABS: BASOPHILS % (AUTO) 0.4 % (0.0-2.0); EOSINOPHILS # (AUTO) 0.2 K/uL (0-0.4); EOSINOPHILS % (AUTO) 3.5 % (0.0-4.0); HEMATOCRIT 30.2 % (36-48); HEMOGLOBIN 9.4 g/dL (12.0-16.0); LYMPHOCYTES % (AUTO) 22.3 % (20.5-51.1); MEAN CORPUSCULAR HEMOGLOBIN 20 pg (27-31); MEAN CORPUSCULAR HGB CONC 31 g/dL (33-37); MEAN CORPUSCULAR VOLUME 62.6 fL (80-94); MONOCYTES # (AUTO) 0.5 K/uL (0.8-1.0); MONOCYTES % (AUTO) 10.5 % (1.7-9.3); NEUTROPHILS # (AUTO) 2.8 K/uL (1.8-7.7); NEUTROPHILS % (AUTO) 63.3 % (42.2-75.2); PLATELET COUNT (AUTO) 332 K/uL (140-450); RED BLOOD CELL COUNT(AUTO) 4.82 MIL/uL (4.20-5.40); RED CELL DISTRIBUTION WIDTH 28.1 % (11.6-13.7); WHITE BLOOD COUNT (AUTO) 4.5 K/uL (4.8-10.8)
[2020-08-13 07:22] LABS: PHOSPHORUS 3.2 mg/dL (2.5-4.9)
--- NOTE | 2020-08-13 07:25 | NUR ---
ENDORSED TO AM SHIFT NURSE FOR CONTINUITY OF CARE.
[2020-08-13 07:26] LABS: ALBUMIN 2.7 g/dL (3.4-5.0); ANION GAP 8.8 (8-16); CARBON DIOXIDE 31.8 mmol/L (21-32); CREATININE 0.6 mg/dL (0.6-1.3); MAGNESIUM 1.9 mg/dL (1.8-2.4); POTASSIUM 3.6 mmol/L (3.5-5.1); TOTAL BILIRUBIN 0.2 mg/dL (0.0-1.0)
--- NOTE | 2020-08-13 07:53 | NUR ---
REC'D REPORT FROM SEO PROFESSIONAL NURSE ,PT ON RA. DOES NOT HAVE IV LINE AT THIS TIME, LAST NIGHT DIFFERENT DEPRTEMTNS ATTEMPTED TO ESTABLISH IV BUT WERE UNSUCCESSFUL. PT A/Ox4, AMBULATORY TO RR. NO BLEEDING PRESENT AT THIS TIME. CALL LIGHT WITHIN REACH
[2020-08-13] MEDS: ENOXAPARIN 40 MG/0.4 ML SYR SUBQ SCH (08:27)
[2020-08-13] MEDS: MULTIVITAMIN 1 TAB PO SCH (08:32)
[2020-08-13] MEDS: FERROUS SULFATE 300 MG/5 ML UDC GT SCH (08:32)
[2020-08-13] MEDS: HYDROmorphone 2 MG TAB PO SCH (08:33)
[2020-08-13] MEDS ORDERED: FERROUS SULFATE PO SCH (09:00)
--- NOTE | 2020-08-13 10:45 | NUR ---
08/13/20 INITIAL ASSESSMENT COMPLETED PLEASE REFER TO NUTRITION ASSESSMENT UNDER CARE ACTIVITY FOR ESTIMATED NUTRITIONAL NEEDS. 1. CONTINUE CLEAR LIQUID DIET, ADVANCE DIET TOLERATED 2. WHEN MEDICALLY CLEARED CONTINUE TUBE FEEDING REGIME OF JEVITY 1.2 @ 65 ML/HR. START AT 20 ML/HR, ADVANCE BY 20 ML/HR Q4H -THIS PROVIDES 1560 ML OF VOLUME, 1872 KCAL AND [address]. [address] TO FOLLOW-UP 2-3 DAYS, HIGH RISK LUIS FELIPE MAGANA RD
--- NOTE | 2020-08-13 11:05 | NUR ---
CALLED FOR PICC LINE TO BE PLACE, BILL WILL CALL FOR ETA. WAS INFORMED OF DR. LANDRY'S REQUEST FOR TPN, NEEDS TO SIGN CONSENT FOR PLACEMENT. WILL WAIT FOR FURTHER INSTRUCTIONS.
--- NOTE | 2020-08-13 12:18 | NUR ---
PER DR. LANDRY, CANCEL TPN, SOFT DIET TOLERATED, CANCEL PICC LINE
[2020-08-13 16:00] VITALS: BP 132/93
--- NOTE | 2020-08-13 16:48 | NUR ---
JTUBE SITE CLEANED WITH NS, APPLIED NEW GAUZE, PT TOLERATED PROCEDURE WELL
[2020-08-13] MEDS: HYDROmorphone 1 MG/ML AMP IVP PRN (17:20)
--- NOTE | 2020-08-13 19:31 | NUR ---
ENDORSED TO NURSE ASSISTANT NURSE FOR CONTINUITY OF CARE. RA. CALL LIGHT WITHIN REACH. STABLE NO SIGN OF DISTRESS
--- NOTE | 2020-08-13 19:32 | NUR ---
RECD. RESTING IN BED, AWAKE, A/OX4. WATCHING TV. RESPIRATION EVEN AND UNLABORED. IV OF D5 0.45% NS INFUSING AT 80ML/HR, RIGHT THUMB G24. J TUBE WITH GAUZE DRESSING , DRY AND INTACT. OLD GT SITE WITH BAND AID, INTACT AND CLEAN. MEDICATIONS AND CARE FOR THE NIGHT DISCUSSED. INSTRUCTED TO TAKE GOOD CARE OF HER IV LINE BECAUSE SHE IS HARD STICK. VERBALIZED UNDERSTANDING. DENIES PAIN 0/10.
[2020-08-13 20:00] VITALS: BP 138/93
[2020-08-13] MEDS ORDERED: MULTIVITAMIN-12 10 ML in DEXTROSE 50% 480 ML, AMINO ACIDS 8.5% 380 ML, FAT EMULSION 20%... IV SCH ×4 (20:00)
[2020-08-13] MEDS ORDERED: INSULIN LISPRO SLIDING SCALE 100 UNITS/ML VIAL SUBQ PRN (20:00)
[2020-08-13] MEDS ORDERED: BLOOD GLUCOSE MONITORING 1 DEV DEV MC SCH (20:00)
--- NOTE | 2020-08-13 21:00 | NUR ---
PATIENT PLAN OF CARE WAS DISCUSSED AND REVIEWED WITH YAZAN RUSS.
--- NOTE | 2020-08-13 21:00 | NUR ---
SITTING ON BED, REQUEST FOR JELLO AND ICE GIVEN.
--- NOTE | 2020-08-14 | NUR ---
STILL AWAKE, NO COMPLAINT OF PAIN, 0/10.
[2020-08-14] MEDS: DEXT 5% / NACL 0.45% 1,000 ML IV SCH ×2 (00:36→12:34)
--- NOTE | 2020-08-14 02:00 | NUR ---
SLEEPING COMFORTABLY IN BED.
--- NOTE | 2020-08-14 04:00 | NUR ---
AWAKE IN BED, ADVISED TO GO BACK TO BED, NO COMPLAINT OF PAIN, 0/10.
--- NOTE | 2020-08-14 07:30 | NUR ---
CONDITION REMAIN STABLE. ENDORSED TO AM SHIFT NURSE FOR CONTINUITY OF CARE.
--- NOTE | 2020-08-14 07:35 | NUR ---
RECEIVED BEDSIDE ENDORSEMENT FROM NIGHTSPRFT NURSE FOR CONTINUITY OF CARE.
[2020-08-14 08:00] VITALS: BP 129/88
[2020-08-14] MEDS: MULTIVITAMIN 1 TAB PO SCH (08:27)
[2020-08-14] MEDS: HYDROmorphone 2 MG TAB PO SCH (08:27)
[2020-08-14] MEDS: FERROUS SULFATE 300 MG/5 ML UDC GT SCH ×2 (08:27→08:38)
[2020-08-14] MEDS: ENOXAPARIN 40 MG/0.4 ML SYR SUBQ SCH (08:29)
--- NOTE | 2020-08-14 08:39 | NUR ---
ADMINISTERED PRESCRIBED MEDS PER MD ORDER. PATIENT REFUSED FERROUS SULFATE, STATED IT MAKES HER VOMIT. PATIENT TOLERATED REMAINING MEDS WELL. MEDICATION EDUCATION PROVIDED. PATIENT VERBALIZED UNDERSTANDING. PATIENT BREAKFAST TRAY DELIVERED. PATIENT IS AOx4, ABLE TO MAKE NEEDS KNOWN. NO SIGNS OF DISTRESS/DISCOMFORT. ASSESSED J TUBE INCISION SITE. SUTURES INTACT, NO BLEED/SWELLING/TENDERNESS. SAFETY MEASURES IN PLACE. WILL CONTINUE TO MONITOR.
[2020-08-14 08:55] LABS: ANION GAP 9.6 (8-16); CARBON DIOXIDE 32.3 mmol/L (21-32); CREATININE 0.6 mg/dL (0.6-1.3); POTASSIUM 3.9 mmol/L (3.5-5.1)
[2020-08-14 09:00] LABS: MAGNESIUM 1.9 mg/dL (1.8-2.4); PHOSPHORUS 4.2 mg/dL (2.5-4.9)
--- NOTE | 2020-08-14 10:05 | NUR ---
HOURLY ROUNDING PERFORMED. PATIENT SITTING IN BED, ABLE TO MAKE NEEDS KNOWN. DENIES PAIN. SAFETY MEASURES IN PLACE. WILL CONTINUE TO MONITOR.
--- NOTE | 2020-08-14 12:54 | NUR ---
ADMINISTERED PRESCRIBED MEDS AND PRN MED FOR HEADACHE 5/10 ORDERED BY MD. PATIENT TOLERATED WELL. MEDICATION EDUCATION PROVIDED. PATIENT VERBALIZED UNDERSTANDING. SAFETY MEASURES IN PLACE. WILL CONTINUE TO MONITOR.
--- NOTE | 2020-08-14 14:29 | NUR ---
PATIENT STATING SHE IS READY TO GO HOME, WILLING TO LEAVE AMA. EDUCATED PATIENT ON CONSEQUENCES OF LEAVING AMA UNDER HER CURRENT CONDITION. STATED SHE WILL WAIT TO SEE MD BEFORE MAKING DECISION. NOTIFIED MD OF PATIENT'S CONCERNS.
[2020-08-14 16:00] VITALS: BP 157/109
--- NOTE | 2020-08-14 17:50 | NUR ---
PATIENT STARTED J-TUBE FEED AT 20 ML. WILL INCREASE IN 1 HOUR IF TOLERATING WELL. PATIENT IS READY TO GO HOME. DISCHARGE ORDER IS IN PLACE PER MD NEED TO ADVANCE TO 60 ML FIRST.
--- NOTE | 2020-08-14 18:00 | NUR ---
ADVANCED TUBE FEED TO 40 ML. PATIENT IS TOLERATING WELL. SAFETY MEASURES IN PLACE. WILL CONTINUE TO MONITOR.
[2020-08-14 18:51] VITALS: BP 157/109
--- NOTE | 2020-08-14 19:29 | NUR ---
BEDSIDE ENDORSEMENT TO NIGHTSHIFT NURSE FOR CONTINUITY OF CARE.
== END 2020-08-14 20:00 | disposition home or self-care (01) | DRG 252 ==
LOC: MED 00:05 → MMU 00:43 → MTU 01:44 → OBSVTOIN 12:06 → MTU 08-13 21:20
PROVIDERS: ADMIT Hospitalist; ATTEND Hospitalist
PROC: 0DW Gastrointestinal System, Revision (ICD-10-PCS; 2020-08-12)
PROC: 0HQ7XZZ Repair Abdomen Skin, External Approach (ICD-10-PCS; principal; 2020-08-12 11:50)
PROC: 0W3P8ZZ Control Bleeding in Gastrointestinal Tract, Via Natural or Artificial Opening Endoscopic (ICD-10-PCS; 2020-08-12 11:50)
DX: K94.11 Enterostomy hemorrhage (principal); D64.9 Anemia, unspecified; E43 Unspecified severe protein-calorie malnutrition; Z20.822 Contact with and (suspected) exposure to COVID-19; F32.9 Major depressive disorder, single episode, unspecified; F41.9 Anxiety disorder, unspecified; G89.29 Other chronic pain; Y83.3 Surgical operation with formation of external stoma as the cause of abnormal reaction of the patient, or of later complication, without mention of misadventure at the time of the procedure; E61.1 Iron deficiency; Z98.84 Bariatric surgery status; Z88.6 Allergy status to analgesic agent; Z88.8 Allergy status to other drugs, medicaments and biological substances; Z68.1 Body mass index [BMI] 19.9 or less, adult
CPT/HCPCS: 43235; 43255; 96361; 96374; 96375; 99285; G0378; 36415; 80048; 80053; 83735; 84100; 84478; 85018; 85025; 86886; 86900; 86901; 87081; A9153; C1769; J0690; J0696; J1170; J1200; J1650; J1815; J2001; J2250; J2270; J3010; J7030; J7060